=== PATIENT | male | born 1985 | race Caucasian/White ===

== ENCOUNTER 2016-08-09 02:52 | Inpatient (IN) | payer MEDICAID, OTHER ==
[~2016-08-09] VITALS: Ht 182.9 cm; Wt 110.6 kg
[2016-08-09 03:40] VITALS: BP 171/112; PULSE 88; RESP 18; TEMP 97.5; O2SAT 96
[2016-08-09] MEDS ORDERED: MAGNESIUM HYDROXIDE SUSP 30 ML CUP PO PRN ×3 (05:30→11:30)
[2016-08-09] MEDS ORDERED: hydrOXYzine HCL 50 MG TAB PO PRN ×2 (05:30→06:45)
[2016-08-09] MEDS ORDERED: BENZTROPINE MESYLATE 2 MG/2 ML VIAL IM PRN ×2 (05:30→11:30)
[2016-08-09] MEDS ORDERED: ALUMINUM/MAGNESIUM/SIMETH 30 ML CUP PO PRN ×3 (05:30→11:30)
[2016-08-09] MEDS ORDERED: BENZTROPINE MESYLATE 1 MG TAB PO PRN ×2 (05:30→11:30)
[2016-08-09] MEDS ORDERED: ACETAMINOPHEN 325 MG TAB PO PRN ×3 (05:30→11:30)
[2016-08-09 06:10] VITALS: BP 123/58; PULSE 88; RESP 18; TEMP 97.5; O2SAT 96
[2016-08-09] MEDS ORDERED: diphenhydrAMINE HCL 50 MG CAP - HS PRN PO (06:45)
[2016-08-09] MEDS ORDERED: diphenhydrAMINE HCL 50 MG/ML VIAL - HS PRN IM (06:45)
[2016-08-09] MEDS ORDERED: diphenhydrAMINE HCL 50 MG CAP PO PRN (11:30)
[2016-08-09] MEDS: SERTRALINE HCL 50 MG TAB PO SCH (12:00)
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
[2016-08-09] MEDS: QUEtiapine FUMARATE 25 MG TAB PO SCH ×2 (13:00→20:41)
[2016-08-09 19:29] VITALS: BP 123/58; PULSE 88; RESP 18; TEMP 97.5; O2SAT 96
[2016-08-10 06:23] VITALS: BP 140/72; PULSE 79; RESP 18; TEMP 97.5
[2016-08-10 08:46] LABS: AUTOMATED NEUTROPHIL # 4.3 TH/MM3 (1.8-7.7); BASOPHIL # 0.1 TH/MM3 (0-0.2); BASOPHIL % 0.9 % (0.0-2.0); EOSINOPHIL # 0.1 TH/MM3 (0-0.4); EOSINOPHIL % 1.3 % (0.0-4.0); HEMATOCRIT 44.8 % (39.0-51.0); HEMO FLAGS DIFF FINAL; LYMPH % 29.7 % (9.0-44.0); LYMPHOCYTE # 2.1 TH/MM3 (1.0-4.8); MEAN CELL VOLUME 84.1 FL (80.0-100.0); MEAN CORPUSCULAR HEMOGLOBIN 28.3 PG (27.0-34.0); MEAN CORPUSCULAR HGB CONC 33.7 % (32.0-36.0); MONO % 6.7 % (0.0-8.0); NEUT % 61.4 % (16.0-70.0); PLATELET COUNT 227 TH/MM3 (150-450); RED BLOOD COUNT 5.32 MIL/MM3 (4.50-5.90); RED CELL DISTRIBUTION WIDTH 13.6 % (11.6-17.2)
[2016-08-10] MEDS: REMOVE OLD PATCH T-DERMAL SCH (09:00)
[2016-08-10 09:21] LABS: ALKALINE PHOSPHATASE 64 U/L (45-117); ALT (GPT) 63 U/L (12-78); ANION GAP 8 MEQ/L (5-15); AST (GOT) 47 U/L (15-37); BICARBONATE 21.6 MEQ/L (21.0-32.0); BLOOD UREA NITROGEN 14 MG/DL (7-18); CHLORIDE 106 MEQ/L (98-107); GLOMERULAR FILTRATION RATE 74 ML/MIN (>89); HDL CHOLESTEROL 66.1 MG/DL (40.0-60.0); LDL CHOLESTEROL 85 MG/DL (0-99); SODIUM (NA) 136 MEQ/L (136-145); TOTAL BILIRUBIN ADULT 0.9 MG/DL (0.2-1.0)
[2016-08-10 09:24] LABS: POTASSIUM 4.3 MEQ/L (3.5-5.1)
[2016-08-10] MEDS: QUEtiapine FUMARATE 25 MG TAB PO SCH ×3 (09:25→20:43)
[2016-08-10] MEDS: SERTRALINE HCL 50 MG TAB PO SCH (09:25)
[2016-08-10] MEDS: NICOTINE 21 MG/24 HR PATCH T-DERMAL SCH (09:26)
--- NOTE | 2016-08-10 10:48 | HHI.PYPN ---
Subjective Remarks Patient seen and examined with counselor. Chart reviewed. Case discussed with nursing staff. On my examination today, patient reports that he feels somewhat tired but also notes that he feels somewhat more at ease. He does note that socialization is easier on the unit because he feels there is "little to no judgement" from peers or staff in this setting. Mood is somewhat improved. Denies SI. Denies AVH. Denies side effects from medications. Review of Systems Other No physical complaints today. Objective Alert: Yes [place]: Person (O x 3) Mood: Anxious (lessening), Depressed (mild) Affect: Blunted Memory Intact: Comment (Intact) Hallucinations: Other (Denies AVH) Delusions: No Delusion Type: Other (No delusions) Suicidal: Ideation (Denies SI) Homicidal: Ideation (No HI) Insight/Judgement Fair Remarks Thought process linear. Speech within normal limits for rate, tone and volume. No motoric abnormalities noted. Labs Test 08/10/16 08:30 White Blood Count 7.0 TH/MM3 Red Blood Count 5.32 MIL/MM3 Hemoglobin 15.1 GM/DL Hematocrit 44.8 % Mean Corpuscular Volume 84.1 FL Mean Corpuscular Hemoglobin 28.3 PG Mean Corpuscular Hemoglobin 33.7 % Concent Red Cell Distribution Width 13.6 % Platelet Count 227 TH/MM3 Mean Platelet Volume 7.7 FL Neutrophils (%) (Auto) 61.4 % Lymphocytes (%) (Auto) 29.7 % Monocytes (%) (Auto) 6.7 % Eosinophils (%) (Auto) 1.3 % Basophils (%) (Auto) 0.9 % Neutrophils # (Auto) 4.3 TH/MM3 Lymphocytes # (Auto) 2.1 TH/MM3 Monocytes # (Auto) 0.5 TH/MM3 Eosinophils # (Auto) 0.1 TH/MM3 Basophils # (Auto) 0.1 TH/MM3 CBC Comment DIFF FINAL Differential Comment Sodium Level 136 MEQ/L Potassium Level 4.3 MEQ/L Chloride Level 106 MEQ/L Carbon Dioxide Level 21.6 MEQ/L Anion Gap 8 MEQ/L Blood Urea Nitrogen 14 MG/DL Creatinine 1.15 MG/DL Estimat Glomerular Filtration 74 ML/MIN Rate Random Glucose 101 MG/DL Calcium Level 8.3 MG/DL Total Bilirubin 0.9 MG/DL Aspartate Amino Transf 47 U/L (AST/SGOT) Alanine Aminotransferase 63 U/L (ALT/SGPT) Alkaline Phosphatase 64 U/L Total Protein 7.2 GM/DL Albumin 3.3 GM/DL Triglycerides Level 77 MG/DL Cholesterol Level 166 MG/DL LDL Cholesterol 85 MG/DL HDL Cholesterol 66.1 MG/DL Cholesterol/HDL Ratio 2.51 RATIO Thyroid Stimulating Hormone 0.384 uIU/ML 3rd Gen Labs reviewed. Mildly decreased GFR. Encourage fluids. Vitals/IOs Vital Signs Date Time Temp Pulse Resp B/P Pulse Ox O2 Delivery O2 Flow Rate FiO2 08/10/16 06:23 97.5 79 18 140/72 08/09/16 19:29 96 Assessment & Plan Problem List: (1) Other psychoactive substance dependence with psychoactive substance-induced mood disorder ICD Code: F19.24 (2) Other mixed anxiety disorders ICD Code: F41.3 Assessment & Plan Continue Zoloft as ordered with plans to titrated. Continue Seroquel as ordered for now, but I did discuss alternate dosing regimens with patient should he feel excessively sedated from current regimen; he is a little tired today. Continue other medications and care as ordered. Justification for Cont. Inpt. Monitoring for impairments in safety. Discharge Planning Home with outpt follow up once stabilized. Request HC Surrog/Guard Advoc?: No Cameron Wright MD Aug 10, 2016 10:48
[2016-08-10 13:19] LABS: HEMOGLOBIN A1a 0.9 %; HEMOGLOBIN A1b 0.7 %; HEMOGLOBIN Ao 86.9 %; HEMOGLOBIN F 1.1 %; HEMOGLOBIN LA1C 1.8 %; HEMOGLOBIN P3 3.3 %
[2016-08-10 18:00] VITALS: BP 145/91; PULSE 92; RESP 18; TEMP 98.4; O2SAT 99
[2016-08-10] MEDS: hydrOXYzine HCL 50 MG TAB PO PRN (20:44)
[2016-08-11 06:14] VITALS: BP 113/72; PULSE 74; RESP 16; TEMP 97.7; O2SAT 97
[2016-08-11] MEDS: REMOVE OLD PATCH T-DERMAL SCH (09:00)
[2016-08-11] MEDS: NICOTINE 21 MG/24 HR PATCH T-DERMAL SCH (09:09)
[2016-08-11] MEDS: QUEtiapine FUMARATE 25 MG TAB PO SCH ×3 (09:10→20:10)
[2016-08-11] MEDS: SERTRALINE HCL 50 MG TAB PO SCH (09:10)
--- NOTE | 2016-08-11 12:10 | HHI.PYPN ---
Subjective Remarks Patient seen and examined. Chart reviewed. Case discussed with nursing staff who reports patient remains in good behavioral control. On my examination today , the patient reports that he feels much more at ease today. He is adapting well to the 2600 unit. He denies any SI or HI and says that the Seroquel in particular is helping with his mood. Sleeping well. Denies side effects from medications. Agreeable to titration of Seroquel. Review of Systems Other No physical complaints today. Objective Alert: Yes [place]: Person (Once again O x 3) Mood: Depressed (improving) Affect: Blunted Memory Intact: Comment (Intact) Hallucinations: Other (No AVH) Delusions: No Delusion Type: Other (No evident delusions) Suicidal: Ideation (Again denies SI) Homicidal: Ideation (Denies HI) Insight/Judgement Fair Remarks No abnormal motor movements noted. TP linear. Speech wnl for rate, tone, volume. Labs Labs reviewed. No new labs. Vitals/IOs Vital Signs Date Time Temp Pulse Resp B/P Pulse Ox O2 Delivery O2 Flow Rate FiO2 08/11/16 06:14 97.7 74 16 113/72 97 Intake and Output 08/10/16 08/10/16 08/11/16 08:00 16:00 00:00 Intake Total 360 ml Balance 360 ml Assessment & Plan Problem List: (1) Other psychoactive substance dependence with psychoactive substance-induced mood disorder ICD Code: F19.24 (2) Other mixed anxiety disorders ICD Code: F41.3 Assessment & Plan Titrate Seroquel to 25/25/50mg. Continue Zoloft as ordered. Continue other medications and care as ordered. Justification for Cont. Inpt. Medication changes in process. Discharge Planning Monitor over weekend. Possible dispo Sunday if doing well. Request HC Surrog/Guard Advoc?: No Cameron Wright MD Aug 11, 2016 12:10
[2016-08-11] MEDS: hydrOXYzine HCL 50 MG TAB PO PRN (17:07)
[2016-08-11 17:34] VITALS: BP 153/86; PULSE 87; RESP 18; TEMP 98.5; O2SAT 96
[2016-08-12 05:47] VITALS: BP 148/87; PULSE 86; RESP 18; TEMP 97.4; O2SAT 99
[2016-08-12] MEDS: QUEtiapine FUMARATE 25 MG TAB PO SCH ×3 (08:38→21:06)
[2016-08-12] MEDS: SERTRALINE HCL 50 MG TAB PO SCH (08:38)
[2016-08-12] MEDS: NICOTINE 21 MG/24 HR PATCH T-DERMAL SCH (08:39)
[2016-08-12] MEDS: REMOVE OLD PATCH T-DERMAL SCH (08:56)
--- NOTE | 2016-08-12 15:07 | HHI.PYPN ---
Subjective Remarks Patient was seen and case discussed with nursing. Patient is pleasant and cooperative with exam. Says he is here to try to determine the diagnosis. Discussed with patient her to get a good psychiatric diagnosis he needs to be off of all substances of abuse. Patient appears to show understanding. Mood is stable. Denies suicidal ideations thought or plan. Social with others. Sleeping well Objective Alert: Yes [place]: Person (Once again O x 3) Mood: Depressed (improving) Affect: Blunted Memory Intact: Comment (Intact) Hallucinations: Other (No AVH) Delusions: No Delusion Type: Other (No evident delusions) Suicidal: Ideation (Again denies SI) Homicidal: Ideation (Denies HI) Insight/Judgement Fair Vitals/IOs Vital Signs Date Time Temp Pulse Resp B/P Pulse Ox O2 Delivery O2 Flow Rate FiO2 08/12/16 05:47 97.4 86 18 148/87 99 Assessment & Plan Problem List: (1) Other psychoactive substance dependence with psychoactive substance-induced mood disorder ICD Code: F19.24 (2) Other mixed anxiety disorders ICD Code: F41.3 Assessment & Plan Continue current treatment plan Justification for Cont. Inpt. Patient will decompensate in a less restrictive setting Request HC Surrog/Guard Advoc?: No Pola Heard DO Aug 12, 2016 15:07
[2016-08-12 18:47] VITALS: BP 123/59; PULSE 86; RESP 18; TEMP 96.4; O2SAT 99
[2016-08-13 04:30] VITALS: BP 118/75; PULSE 73; RESP 18; TEMP 97.2; O2SAT 97
[2016-08-13] MEDS: SERTRALINE HCL 50 MG TAB PO SCH (08:32)
[2016-08-13] MEDS: NICOTINE 21 MG/24 HR PATCH T-DERMAL SCH (08:33)
[2016-08-13] MEDS: QUEtiapine FUMARATE 25 MG TAB PO SCH ×3 (08:33→21:07)
[2016-08-13] MEDS: REMOVE OLD PATCH T-DERMAL SCH (08:58)
--- NOTE | 2016-08-13 12:19 | HHI.PYPN ---
Subjective Remarks Patient was seen and case discussed with nursing. Patient is pleasant and cooperative with exam. Continues to show improving insight concerning the role of drugs and mood. Hoping for discharge next week. Pleasant and cooperative with others and socializing with others. Compliant with medications. Denies suicidal ideations intent or plan Objective Alert: Yes [place]: Person (Once again O x 3) Mood: Depressed (improving) Affect: Blunted Memory Intact: Comment (Intact) Hallucinations: Other (No AVH) Delusions: No Delusion Type: Other (No evident delusions) Suicidal: Ideation (Again denies SI) Homicidal: Ideation (Denies HI) Insight/Judgement Improving Vitals/IOs Vital Signs Date Time Temp Pulse Resp B/P Pulse Ox O2 Delivery O2 Flow Rate FiO2 08/13/16 04:30 97.2 73 18 118/75 97 Assessment & Plan Problem List: (1) Other psychoactive substance dependence with psychoactive substance-induced mood disorder ICD Code: F19.24 (2) Other mixed anxiety disorders ICD Code: F41.3 Assessment & Plan Continue current treatment plan Justification for Cont. Inpt. Patient will decompensate in a less restrictive setting Request HC Surrog/Guard Advoc?: No Pola Heard DO Aug 13, 2016 12:19
[2016-08-13 19:06] VITALS: BP 139/78; PULSE 84; RESP 18; TEMP 99.5; O2SAT 98
[2016-08-14 05:17] VITALS: BP 118/60; PULSE 73; RESP 18; TEMP 97.7; O2SAT 98
[2016-08-14] MEDS: NICOTINE 21 MG/24 HR PATCH T-DERMAL SCH (09:00)
[2016-08-14] MEDS: REMOVE OLD PATCH T-DERMAL SCH (09:00)
[2016-08-14] MEDS: SERTRALINE HCL 50 MG TAB PO SCH (10:19)
[2016-08-14] MEDS: QUEtiapine FUMARATE 25 MG TAB PO SCH ×2 (10:20→12:53)
[2016-08-14] MEDS ORDERED: QUET1TAB7 PO ×2 (12:20)
[2016-08-14] MEDS ORDERED: ZOLO50TA PO (12:20)
--- NOTE | 2016-08-14 12:20 | HHI.DS ---
Psychiatry Discharge Summary Inpatient Psychiatric care?: Yes Advance Directive: No Reason Not Provided: declinded Mental Health AdvanceDirective: No Health Care Proxy: No Admission Admission Date Aug 09, 2016 at 03:30 Admission Diagnosis: (1) Other psychoactive substance dependence with psychoactive substance-induced mood disorder ICD Code: F19.24 (2) Other mixed anxiety disorders ICD Code: F41.3 Brief History Mr. Lemus is a 31-year-old male with no reported past psychiatric history who presents in transfer from [facility] under a Barton Act. Reviewing the records from [facility], the patient apparently presented there complaining of suicidal ideation in the context of alcohol and oxycodone use. He told the ED doctor there that he had nothing to live for. Reviewing our electronic medical record, I see only one prior emergency room visit in 2005 when the patient presented with altered mental status in the context of having rapidly consumed a large quantity of alcohol after failing out of drug rehabilitation. He was apparently sent to [facility] at that time. Patient seen and examined with counselor. Chart reviewed. Case discussed with nurse on the inpatient psychiatric unit. On my examination today, the patient presents as tearful and downcast. He says "I have to be stabilized. I am driving myself and everyone else crazy. I am seeking constant approval from my . I don't believe anything that she says. I think she has ulterior motives. I'm nervous to go into stores because I think people are judging me. It's been going on for a while but it's been worse since January." The patient notes that he was arrested around that time on charges of aggravated assault with a firearm and kidnapping, although these were reportedly subsequently dropped. He has been from his since this incident. He reports that in addition to difficulty with his mood, which he describes as "broken, angry, sad, lonely," he has been struggling with sleep and appetite. He endorses feelings of anhedonia and hopelessness. He feels somewhat irritable. No hypomanic or manic episodes in the past, nor is there much in the way of hypomanic or manic symptomatology currently. He denies suicidal or homicidal ideation. Denies any audiovisual hallucinations and I can elicit no delusional beliefs. He is fairly generally anxious. The remainder of the psychiatric ROS is negative. Tobacco Use In Past 30 Days: 5 or More Cigarettes/Day Alcohol Use: 2-3 Times Per Week Hospital Course Patient was admitted to a locked, inpatient psychiatric unit. Appropriate precautions were in place throughout patient's hospital stay. Patient was seen and examined daily on the unit by psychiatry and also visited by counselor. Medications were adjusted. Patient tolerated medications well without side effects. Patient had improvement in his presenting psychiatric symptomatology. There was no evidence of any suicidality or homicidality on the inpatient unit. Patient remained in good behavioral control and was medication compliant. Reviewing the electronic medical record I note that the patient is sleeping and eating well. On the day of discharge: Patient seen and examined. Chart reviewed. Case discussed with nursing staff reports no behavioral issues. On my examination today, the patient reports that he feels much improved versus admission and is requesting discharge from the inpatient psychiatric unit today. He reports his mood is improved and anxiety level lessened. He denies any suicidal or homicidal ideation. He denies any audiovisual hallucinations and I can elicit no delusional beliefs. He speaks insightfully about the connection between his psychiatric symptomatology and his substance use and verbalizes desire to abstain from substances on discharge and to attend 90 12-step meetings in 90 days. He denies side effects from medications. No somatic complaints. Weighing the acute, chronic, and protective factors and based on the available evidence, I spark plug assembler to a reasonable degree of medical certainty that the patient is at low imminent risk of harm to self or others from a mental illness and his level of function is adequate for outpatient care. I will discharge the patient today in stable condition with psychiatric follow-up as arranged by counselor. Patient is also to follow-up with primary care. I have counseled the patient regarding warning signs for need to return to the psychiatric emergency room as part of the general safety plan. Results Blood Pressure 118 / 60 Vital Signs Date Time Temp Pulse Resp B/P Pulse Ox O2 Delivery O2 Flow Rate FiO2 08/14/16 05:17 97.7 73 18 118/60 98 Laboratory Results Test 08/10/16 08:30 Hemoglobin A1c 4.8 % (4.3-6.0) Triglycerides Level 77 MG/DL (42-150) Cholesterol Level 166 MG/DL (120-200) LDL Cholesterol 85 MG/DL (0-99) HDL Cholesterol 66.1 MG/DL (40.0-60.0) Summary of Procedures None done Imaging None done Pending results at discharge: No Medications # of Antipsychotic meds at D/C: 1 Approp Antipsych med options 1 - Minimum of three failed multiple trials of monotherapy. 2 - Documented plan to taper to monotherapy due to previous use of multiple meds OR cross-taper in progress at D/C. 3 - Documentation of augmentation of Clozapine. 4 - Justification other than those listed in allowable values 1-3, document here : Discharge Discharge Date: Aug 14, 2016 Discharge Diagnosis: (1) Other psychoactive substance dependence with psychoactive substance-induced mood disorder Diagnosis: Principal (mood disorder improved) ICD Code: F19.24 (2) Other mixed anxiety disorders Diagnosis: Secondary (improved) ICD Code: F41.3 GAF on discharge is 60 Mental Status Exam at Disch Patient is casually dressed. He is well groomed. He is awake and alert and oriented 3. No abnormal motor movements noted. Speech is within normal limits for rate, tone and volume. Language and fund of knowledge seem average. Mood is improved versus admission and affect is full and reactive. Thought process linear. No loosening of associations. No evident delusions. Denies audiovisual hallucinations. Denies suicidal or homicidal ideation. Insight and judgment are fair. Pt Condition on Discharge: Stable Discharge Disposition: Discharge Home Discharge Instructions Diet Instructions: As Tolerated, No Restrictions Activities you can perform: Weight Bearing as Christ Scheduled Appointment: Jasson Laguerre Appointment Date: Aug 17, 2016 Appointment Time: 7:30 am New Medications: Quetiapine (Quetiapine) 25 Mg Tab 25 MG PO DAILY@09,13 Mental Health Days 15 Ref 1 TAB Quetiapine (Quetiapine) 25 Mg Tab 50 MG PO HS Mental Health Days 15 Ref 1 TAB Sertraline (Zoloft) 50 Mg Tab 50 MG PO DAILY Mental Health Days 15 Ref 1 TAB Discharge Time <= 30 minutes Discharge/Advance Care Plan Health Problems: (1) Other psychoactive substance dependence with psychoactive substance-induced mood disorder (2) Other mixed anxiety disorders Goals to promote your health * To prevent worsening of your condition and complications * To maintain your health at the optimal level Directions to meet your goals Take your medications as prescribed Follow your dietary instruction Follow activity as directed Keep your appointments as scheduled Take your immunizations and boosters as scheduled If your symptoms worsen call your PCP, if no PCP go to Urgent Care Center or Emergency Room For 22/01 questions related to your inpatient stay or results of tests pending at discharge, please contact Dr. Cameron Wright at Smoking is Dangerous to Your Health. Avoid second hand smoking Cameron Wright MD Aug 14, 2016 12:20
== END 2016-08-14 14:55 | disposition home or self-care (01) | DRG 897 ==
LOC: H270 03:30 → H260 08-10 13:25
PROVIDERS: ADMIT Psychiatry & Neurology Psychiatry; ATTEND Psychiatry & Neurology Psychiatry
DX: F19.24 Other psychoactive substance dependence with psychoactive substance-induced mood disorder (principal); F11.10 Opioid abuse, uncomplicated; R45.851 Suicidal ideations; F41.3 Other mixed anxiety disorders; F17.210 Nicotine dependence, cigarettes, uncomplicated; F12.10 Cannabis abuse, uncomplicated; R73.9 Hyperglycemia, unspecified; F10.10 Alcohol abuse, uncomplicated; Y90.0 Blood alcohol level of less than 20 mg/100 ml; Z81.8 Family history of other mental and behavioral disorders; Z91.410 Personal history of adult physical and sexual abuse; Z91.5 Personal history of self-harm
CPT/HCPCS: 80053; 80061; 83036; 84443; 85025